=== PATIENT | female | born 1970 | race American Indian/Alaskan Native ===

== ENCOUNTER 2020-05-28 02:31 | Emergency (ER) | payer SELFPAY ==
[2020-05-28 04:40] LABS: Basophils % (Auto) 0.8 % (0.0-1.8); Eosinophils # (Auto) 0.1 K/mm3 (0.0-0.4); Eosinophils % (Auto) 1.6 % (0.0-4.3); Lymphocytes % (Auto) 50.8 % (13.4-35.0); Mean Corpuscular HGB Conc 32 % (30-34); Mean Corpuscular Volume 81 fl (79-97); Monocytes # (Auto) 0.3 K/mm3 (0.0-0.8); Monocytes % (Auto) 7.4 % (0.0-7.3); Platelet Count 186 K/mm3 (140-440); Red Blood Count 4.58 M/mm3 (3.65-5.03); Red Cell Distribution Width 13.7 % (13.2-15.2)
[2020-05-28 04:58] LABS: Alanine Aminotransferase 13 units/L (7-56); Albumin 4.4 g/dL (3.9-5); Blood Urea Nitrogen 9 mg/dL (7-17); Calcium 10.4 mg/dL (8.4-10.2); Hemolysis Index 4
[2020-05-28 05:11] LABS: BUN/Creatinine Ratio 15
[2020-05-28 05:17] LABS: Bilirubin,Urine NEG (Negative); Blood,Urine NEG (Negative); Color,Urine Colorless (Yellow); Protein,Urine <15 mg/dL mg/dL (Negative); RBC,Urine < 1.0 /HPF (0.0-6.0); Urobilinogen,Urine < 2.0 mg/dL (<2.0); WBC,Urine < 1.0 /HPF (0.0-6.0)
[2020-05-28] MEDS ORDERED: ALUM-MAG HYDROXIDE-SIMETHICONE 200-200-20MG/5ML ORAL LIQD 30 ML PO ONE (07:49)
[2020-05-28] MEDS ORDERED: LIDOCAINE VISCOUS 2% 15 ML ORAL LIQD PO ONE (07:50)
[2020-05-28] MEDS ORDERED: FAMOTIDINE 20 MG TAB PO ONE (07:50)
--- NOTE | 2020-05-28 07:50 | Emergency Department Report ---
ED Abdominal Pain HPI - General Chief Complaint: Abdominal Pain Stated Complaint: SEVERE ABD PAIN PUI?: No Time Seen by Provider: 05/28/20 07:25 Source: patient Mode of arrival: Ambulatory Limitations: No Limitations - History of Present Illness Initial Comments: Patient is a 49-year-old -[place] female that comes to the emergency room with severe epigastric pain. She states that it is not related to anything that she has eaten. She denies nausea vomiting or diarrhea. However, she does endorse a recent weight loss. She states that she has lost 2 pounds in the last couple weeks. She has a normal BMI for her age and height. She is nonill nontoxic appearing on exam. She has normal vital signs with no hypotension tachycardia or fever. She states that the pain has been off and on for couple weeks. It is worse when she lies flat. It improved when she sits up. She denies ever having had an endoscopy or colonoscopy. However, she on probing states that she has been told that she had heartburn in the past. She denies any constipation or loose or bloody stools. She denies diarrhea. She denies fever or chills. She denies shortness of breath or cough. She denies pain up into her chest. She denies any surgical history. She denies alcohol drugs or tobacco. Her mother is alive and well. Her father of consequences of hypertension. Patient takes no medications on a daily basis at home. MD Complaint: abdominal pain -: Sudden Location: epigastric Radiation: epigastric Migration to: no migration Severity: severe Quality: fullness Consistency: constant Improves With: other (sitting up) Worsens With: other (laying flat) Associated Symptoms: denies: nausea, vomiting, diarrhea, fever, chills, constipation, dysuria, hematemesis, hematochezia, melena, hematuria, anorexia, syncope - Related Data LMP (females 10-50): other (2y ago) Previous Rx's Medication Instructions Recorded Last Taken Type Famotidine [Pepcid] 40 mg PO QHS #30 tablet 05/28/20 Unknown Rx Allergies Allergy/AdvReac Type Severity Reaction Status Date / Time No Known Allergies Allergy Unverified 05/28/20 03:48 ED Review of Systems ROS: Stated complaint: SEVERE ABD PAIN Other details as noted in HPI Comment: All other systems reviewed and negative ED Past Medical Hx - Past Medical History Previous Medical History?: Yes Hx Hypertension: Yes (denied 06-09) Hx GERD: Yes - Surgical History Past Surgical History?: No - Family History Family history: no significant - Social History Smoking Status: Never Smoker Substance Use Type: None - Medications Home Medications: Home Medications Medication Instructions Recorded Confirmed Last Taken Type Famotidine [Pepcid] 40 mg PO QHS #30 tablet 05/28/20 Unknown Rx ED Physical Exam - General Limitations: No Limitations General appearance: alert, in no apparent distress - Head Head exam: Present: atraumatic, normocephalic - Eye Eye exam: Present: normal appearance - ENT ENT exam: Present: mucous membranes moist - Neck Neck exam: Present: normal inspection - Respiratory Respiratory exam: Present: normal lung sounds bilaterally. Absent: respiratory distress - Cardiovascular Cardiovascular Exam: Present: regular rate, normal rhythm. Absent: systolic murmur, diastolic murmur, rubs, gallop - GI/Abdominal GI/Abdominal exam: Present: soft, tenderness (epigastric), normal bowel sounds - Extremities Exam Extremities exam: Present: normal inspection - Back Exam Back exam: Present: normal inspection - Neurological Exam Neurological exam: Present: alert, oriented X3 - Psychiatric Psychiatric exam: Present: normal affect, normal mood - Skin Skin exam: Present: warm, dry, intact, normal color. Absent: rash ED Course Vital Signs 05/28/20 05/28/20 03:45 08:40 Temperature 97.7 F 98.0 F Pulse Rate 78 72 Respiratory 17 18 Rate Blood Pressure 148/73 Blood Pressure 142/72 [Left] O2 Sat by Pulse 100 98 Oximetry ED Medical Decision Making - Lab Data Result diagrams: 05/28/20 03:58 05/28/20 03:58 - EKG Data EKG shows normal: sinus rhythm Rate: normal - EKG Data When compared to previous EKG there are: no significant change Interpretation: no acute changes - Radiology Data Radiology results: report reviewed, image reviewed interpreted by me: no free air; stool No acute process - Medical Decision Making Vital Signs 05/28/20 03:45 Temperature 97.7 F Pulse Rate 78 Respiratory 17 Rate Blood Pressure 148/73 O2 Sat by Pulse 100 Oximetry Lab Results 05/28/20 05/28/20 05/28/20 Range/Units 03:58 03:58 03:58 WBC 4.0 L (4.5-11.0) K/mm3 RBC 4.58 (3.65-5.03) M/mm3 Hgb 12.0 (10.1-14.3) gm/dl Hct 37.0 (30.3-42.9) % MCV 81 (79-97) fl MCH 26 L (28-32) pg MCHC 32 (30-34) % RDW 13.7 (13.2-15.2) % Plt Count 186 (140-440) K/mm3 Lymph % (Auto) 50.8 H (13.4-35.0) % Scott % (Auto) 7.4 H (0.0-7.3) % Eos % (Auto) 1.6 (0.0-4.3) % Baso % (Auto) 0.8 (0.0-1.8) % Lymph # (Auto) 2.0 (1.2-5.4) K/mm3 Scott # (Auto) 0.3 (0.0-0.8) K/mm3 Eos # (Auto) 0.1 (0.0-0.4) K/mm3 Baso # (Auto) 0.0 (0.0-0.1) K/mm3 Seg Neutrophils % 39.4 L (40.0-70.0) % Seg Neutrophils # 1.6 L (1.8-7.7) K/mm3 Sodium 142 (137-145) mmol/L Potassium 4.2 (3.6-5.0) mmol/L Chloride 103.3 (98-107) mmol/L Carbon Dioxide 28 (22-30) mmol/L Anion Gap 15 mmol/L BUN 9 (7-17) mg/dL Creatinine 0.6 (0.6-1.2) mg/dL Estimated GFR > 60 ml/min BUN/Creatinine Ratio 15 % Glucose 92 (65-100) mg/dL Calcium 10.4 H (8.4-10.2) mg/dL Total Bilirubin 0.40 (0.1-1.2) mg/dL AST 22 (5-40) units/L ALT 13 (7-56) units/L Alkaline Phosphatase 60 (35-129) units/L Total Protein 7.6 (6.3-8.2) g/dL Albumin 4.4 (3.9-5) g/dL Albumin/Globulin Ratio 1.4 % Lipase 38 (13-60) units/L Urine Color (Yellow) Urine Turbidity (Clear) Urine pH (5.0-7.0) Ur Specific [place] (1.003-1.030) Urine Protein (Negative) mg/dL Urine Glucose (UA) (Negative) mg/dL Urine Ketones (Negative) mg/dL Urine Blood (Negative) Urine Nitrite (Negative) Urine Bilirubin (Negative) Urine Urobilinogen (<2.0) mg/dL Ur Leukocyte Esterase (Negative) Urine WBC (Auto) (0.0-6.0) /HPF Urine RBC (Auto) (0.0-6.0) /HPF 05/28/20 Range/Units Unknown WBC (4.5-11.0) K/mm3 RBC (3.65-5.03) M/mm3 Hgb (10.1-14.3) gm/dl Hct (30.3-42.9) % MCV (79-97) fl MCH (28-32) pg MCHC (30-34) % RDW (13.2-15.2) % Plt Count (140-440) K/mm3 Lymph % (Auto) (13.4-35.0) % Scott % (Auto) (0.0-7.3) % Eos % (Auto) (0.0-4.3) % Baso % (Auto) (0.0-1.8) % Lymph # (Auto) (1.2-5.4) K/mm3 Scott # (Auto) (0.0-0.8) K/mm3 Eos # (Auto) (0.0-0.4) K/mm3 Baso # (Auto) (0.0-0.1) K/mm3 Seg Neutrophils % (40.0-70.0) % Seg Neutrophils # (1.8-7.7) K/mm3 Sodium (137-145) mmol/L Potassium (3.6-5.0) mmol/L Chloride (98-107) mmol/L Carbon Dioxide (22-30) mmol/L Anion Gap mmol/L BUN (7-17) mg/dL Creatinine (0.6-1.2) mg/dL Estimated GFR ml/min BUN/Creatinine Ratio % Glucose (65-100) mg/dL Calcium (8.4-10.2) mg/dL Total Bilirubin (0.1-1.2) mg/dL AST (5-40) units/L ALT (7-56) units/L Alkaline Phosphatase (35-129) units/L Total Protein (6.3-8.2) g/dL Albumin (3.9-5) g/dL Albumin/Globulin Ratio % Lipase (13-60) units/L Urine Color Colorless (Yellow) Urine Turbidity Clear (Clear) Urine pH 7.0 (5.0-7.0) Ur Specific [place] 1.005 (1.003-1.030) Urine Protein <15 mg/dl (Negative) mg/dL Urine Glucose (UA) Neg (Negative) mg/dL Urine Ketones Neg (Negative) mg/dL Urine Blood Neg (Negative) Urine Nitrite Neg (Negative) Urine Bilirubin Neg (Negative) Urine Urobilinogen < 2.0 (<2.0) mg/dL Ur Leukocyte Esterase Neg (Negative) Urine WBC (Auto) < 1.0 (0.0-6.0) /HPF Urine RBC (Auto) < 1.0 (0.0-6.0) /HPF Twelve-lead EKG reveals no ST depression or elevation consistent with atypical ACS in middle-age female. Chest x-ray reveals no air under the diaphragm. No consolidation in her lung leon bilateral. Labs noted. Lipase normal. LFTs normal. Troponin is normal. Patient was medicated with a GI cocktail which she states provided some relief. She was given a p.o. challenge and is tolerating without difficulty. Patient has had no nausea or vomiting while in the ER. Patient is being discharged to home with follow-up, diet, activity and medication instructions. She verbalizes understanding. She is been given a referral to both GI and primary care. - Differential Diagnosis ro atypical ACS/gerd Critical care attestation.: If time is entered above; I have spent that time in minutes in the direct care of this critically ill patient, excluding procedure time. ED Disposition Clinical Impression: Epigastric pain Disposition: DC-01 TO HOME OR SELFCARE Is pt being admited?: No Does the pt Need Aspirin: No Condition: Stable Instructions: Abdominal Pain, Adult, [id number], Abdominal Pain (ED) Additional Instructions: bland diet - banana, rice, applesauce and toast hydrate well with water activity as tolerated follow up with pcp and gi MD as we discussed-- you should see this week to be sure you are improving referral below meds as ordered today avoid motrin/ibruprofen/aspirin until you have follow up appointments Prescriptions: Famotidine [Pepcid] 40 mg PO QHS #30 tablet Referrals: CALLI BADILLO MD [Staff Physician] - 3-5 Days CARLENE WEATHERS MD [Staff Physician] - 3-5 Days HAY ZIMMERMAN MD [Staff Physician] - 3-5 Days DEIDRE TOM MD [Staff Physician] - 3-5 Days Time of Disposition: 08:23
[2020-05-28 08:41] VITALS: BP 142/72
--- NOTE | 2020-05-28 08:49 | XRay Report ---
CHEST / ABDOMEN 1 VIEW INDICATION / CLINICAL INFORMATION: epigastric pain ro free air. COMPARISON: None available. FINDINGS: SUPPORT DEVICES: None. HEART / MEDIASTINUM: No significant abnormality. LUNGS / PLEURA: No significant pulmonary or pleural abnormality. No pneumothorax. TUBES / LINES: None. BOWEL GAS PATTERN: No significant abnormality. FREE AIR / EXTRALUMINAL GAS: None seen. ADDITIONAL FINDINGS: Bilateral small nodular peripherally calcified densities overlie the lateral asp ects of the pelvis. IMPRESSION: 1. No acute findings. Signer Name: Eduin Brito MD Signed: 05/28/2020 8:45 AM Workstation Name: [id number]
== END 2020-05-28 08:40 | disposition home or self-care (01) ==
LOC: ED 02:31
DX: R10.13 Epigastric pain (principal)
CPT/HCPCS: 36415; 74022; 80053; 81001; 83690; 84484; 85025; 93005